=== PATIENT | female | born 1980 | race Two or more races ===

== ENCOUNTER 2025-01-05 09:24 | Inpatient (IN) | payer OTHER ==
[~2025-01-05] VITALS: Ht 157.5 cm; Wt 56.7 kg
[2025-01-05] MEDS ORDERED: IRON236 MG PO (09:34)
[2025-01-05 09:37] VITALS: BP 94/65
[2025-01-05 10:27] LABS: BASO % 1.1 % (0.1-1.2); EOS # 0.13 (0.04-0.54); EOS % 2.3 % (0.7-7.0); LYMPH # 1.48 (1.18-3.74); LYMPH % 26.0 % (19.3-53.1); MEAN PLATELET VOLUME 10.20 fl (9.4-12.4); MONO # 0.49 (0.24-0.82); MONO % 8.6 % (4.7-12.5); NEUT # 3.51 (1.56-6.13); NEUT % 61.6 % (34.0-71.1); RED CELL DISTRIBUTION WIDTH 18.8 % (11.6-14.4)
[2025-01-05 10:28] LABS: URINE APPEARANCE Cloudy; URINE BILIRRUBIN Negative (NEGATIVE); URINE BLOOD Trace; URINE COLOR Yellow; URINE GLUCOSE Negative (NEGATIVE); URINE KETONE Negative (NEGATIVE); URINE LEUKOCYTE Trace; URINE NITRATE Negative; URINE PROTEIN Negative (NEGATIVE); URINE UROBILINOGEN 0.2 E.U./dl
[2025-01-05 10:37] LABS: URINE BACTERIA 9021.2 uL (0.0-1933); URINE EPITHELIAL CELLS 99.2 uL (0.0-38.8); URINE RBC 20.0 uL (0.0-20.8); URINE WBC 68.4 uL (0.0-23.2)
[2025-01-05 10:38] LABS: URINE CAST 0.87 uL (0.0-1.40)
[2025-01-05 10:54] LABS: INR 0.99
[2025-01-05 11:14] LABS: URINE CRYSTALS FEW /HPF
[2025-01-05 11:26] LABS: ALT/SGPT 26.0 U/L (12-78); AST/SGOT 11.0 U/L (15-37); BILIRUBIN TOTAL 0.34 mg/dL (0.3-1.2); BUN CREA RATIO 14.0 (7.0-25.0); CREATININE SERUM 0.64 mg/dL (0.55-1.02); GFR 100.81; GLOBULINA 3.5 G/DL (2.4-3.5); GLUCOSE FASTING 82.0 mg/dL (65-100); OSMOLALITY SERUM 279.0 MOSM/KG (275-295)
[2025-01-08] MEDS ORDERED: CEFAZOLIN SODIUM 1,000 MG VIAL ONE (14:54)
[2025-01-08] MEDS ORDERED: POVIDONE-IODINE 118 ML BOTT TOP ONE ×2 (17:50→18:40)
[2025-01-08] MEDS ORDERED: BUPIVACAINE HCL/Mpf 0.5% 10ML VIAL ONE (18:40)
[2025-01-08] MEDS ORDERED: LIDOCAINE HCL 1%/EPINEPHRINE 20ML VIAL IJ ONE (18:41)
[2025-01-08] MEDS ORDERED: METRONIDAZOLE/SODIUM CHLORIDE 500 MG/100 ML PIGGYBACK IV ONE (19:35)
[2025-01-08] MEDS ORDERED: VISTASEAL DUAL APPICATOR 1 EACH APPL TOP ONE (20:54)
[2025-01-08] MEDS ORDERED: THROMBIN,HU/FIBRINOGEN/CALCIUM 10 ML SYRINGE TOP ONE (20:54)
[2025-01-08] MEDS ORDERED: FAMOTIDINE/PF 20 MG/2 ML VIAL IV SCH (21:58)
[2025-01-08] MEDS ORDERED: MORPHINE SULFATE 4 MG/ML CARTRIDGE IV PRN (22:00)
[2025-01-08] MEDS ORDERED: RINGERS SOLUTION,LACTATED 1,000 ML IV SCH (22:00)
[2025-01-08] MEDS ORDERED: ONDANSETRON HCL 2 MG/ML VIAL IV PRN (22:00)
[2025-01-08] MEDS ORDERED: KETOROLAC TROMETHAMINE 30 MG VIAL IV SCH (22:00)
[2025-01-09 02:53] VITALS: BP 100/64
[2025-01-09 06:16] LABS: BASO % 0.3 % (0.1-1.2); EOS # 0.00 (0.04-0.54); EOS % 0.0 % (0.7-7.0); LYMPH # 0.97 (1.18-3.74); LYMPH % 8.5 % (19.3-53.1); MEAN PLATELET VOLUME 9.80 fl (9.4-12.4); MONO # 0.56 (0.24-0.82); MONO % 4.9 % (4.7-12.5); NEUT # 9.81 (1.56-6.13); NEUT % 85.9 % (34.0-71.1); RED CELL DISTRIBUTION WIDTH 18.6 % (11.6-14.4)
[2025-01-09 08:53] VITALS: BP 91/60
[2025-01-09] MEDS ORDERED: DOCUSATE SODIUM 100MG CAP PO SCH (09:00)
[2025-01-09] MEDS ORDERED: GABAPENTIN 100 MG CAPSULE PO PRN (09:00)
[2025-01-09] MEDS ORDERED: SIMETHICONE 125 MG CAPSULE PO SCH (09:00)
[2025-01-09 12:34] LABS: BASO % 0.2 % (0.1-1.2); EOS # 0.02 (0.04-0.54); EOS % 0.2 % (0.7-7.0); LYMPH # 1.36 (1.18-3.74); LYMPH % 11.8 % (19.3-53.1); MEAN PLATELET VOLUME 10.80 fl (9.4-12.4); MONO # 0.49 (0.24-0.82); MONO % 4.2 % (4.7-12.5); NEUT # 9.64 (1.56-6.13); NEUT % 83.3 % (34.0-71.1); RED CELL DISTRIBUTION WIDTH 18.9 % (11.6-14.4)
[2025-01-09] MEDS ORDERED: OxyCODONE HCL 5 MG TABLET (ROXICODONE) PO ONE (17:15)
[2025-01-09 19:00] VITALS: BP 94/68
[2025-01-09] MEDS ORDERED: KETOROLAC TROMETHAMINE 30 MG VIAL IM PRN (20:00)
[2025-01-09] MEDS ORDERED: OxyCODONE HCL 5 MG TABLET (ROXICODONE) PO PRN (20:00)
[2025-01-09] MEDS ORDERED: ACETAMINOPHEN 500 MG GEL..CAP PO PRN (20:15)
[2025-01-10 01:44] VITALS: BP 100/64
[2025-01-10] MEDS ORDERED: KETOROLAC TROMETHAMINE 30 MG VIAL IM PRN (02:15)
[2025-01-10 08:42] VITALS: BP 88/58
== END 2025-01-10 13:33 | disposition home or self-care (01) | DRG 743 ==
LOC: OB/GYN 01-08 07:00 → O/R 01-08 13:00 → OB/GYN 01-08 13:00 → O/R 01-08 22:25 → OB/GYN 01-08 22:25
PROVIDERS: ADMIT General Practice; ATTEND General Practice
PROC: 0UT94ZZ Resection of Uterus, Percutaneous Endoscopic Approach (ICD-10-PCS; principal; 2025-01-09)
PROC: 0UT74ZZ Resection of Bilateral Fallopian Tubes, Percutaneous Endoscopic Approach (ICD-10-PCS; 2025-01-09)
PROC: 0DNU4ZZ Release Omentum, Percutaneous Endoscopic Approach (ICD-10-PCS; 2025-01-09)
PROC: 0TJB8ZZ Inspection of Bladder, Via Natural or Artificial Opening Endoscopic (ICD-10-PCS; 2025-01-09)
DX: D25.1 Intramural leiomyoma of uterus (principal); D25.2 Subserosal leiomyoma of uterus; D25.0 Submucous leiomyoma of uterus; N80.03 Adenomyosis of the uterus